=== PATIENT | male | born 1985 | race Caucasian/White ===

== ENCOUNTER 2017-08-03 11:11 | Emergency (ER) | payer OTHER ==
[2017-08-03] MEDS ORDERED: Silver Sulfadiazine 1%* 20 GM TOPICAL ONE (11:36)
[2017-08-03] MEDS ORDERED: Silver Sulfadiazine 1%* 20 GM ONE (11:37)
[2017-08-03] MEDS ORDERED: HYDROcodone/ACETAMIN 5-325 MG* 1 TAB PO ONE ×2 (11:55→11:58)
[2017-08-03] MEDS: HYDROcodone/ACETAMIN 5-325 MG* 1 TAB PO ONE ×2 (12:04→12:05)
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
[2017-08-03 12:07] VITALS: BP 147/81
== END 2017-08-03 12:08 | disposition home or self-care (01) ==
LOC: EDBD → ED 11:11
DX: T23.251A Burn of second degree of right palm, initial encounter (principal); X15.0XXA Contact with hot stove (kitchen), initial encounter; Y92.9 Unspecified place or not applicable
CPT/HCPCS: 99282; A9270-GY